=== PATIENT | male | born 2000 | race American Indian/Alaskan Native ===

== ENCOUNTER 2019-07-31 21:46 | Emergency (ER) | payer SELFPAY ==
[2019-07-31 22:00] VITALS: BP 149/91
== END 2019-08-01 01:00 | disposition left against medical advice (07) ==
LOC: ED 21:46
DX: M79.661 Pain in right lower leg (principal); Z53.21 Procedure and treatment not carried out due to patient leaving prior to being seen by health care provider

== ENCOUNTER 2019-10-18 02:09 | Emergency (ER) | payer OTHER ==
[2019-10-18 02:18] VITALS: BP 144/90
[2019-10-18] MEDS ORDERED: AZITHROMYCIN 250 MG TAB PO ONE (05:25)
[2019-10-18] MEDS ORDERED: LIDOCAINE-MPF (1%) 10 MG/1 ML VIAL 5 ML INFILTRATI ONE (05:25)
--- NOTE | 2019-10-18 05:27 | Emergency Department Report ---
ED Male HPI - General Chief complaint: Urogenital-Male Stated complaint: GENITAL AREA SWELLING Time Seen by Provider: 10/18/19 04:04 Source: patient Mode of arrival: Ambulatory Limitations: No Limitations - History of Present Illness Initial comments: This is a 18-year-old -[place] male who presents to the emergency room with penile discharge and swollen penis for 2 days. Patient admits to unprotected intercourse. Patient states his distal foreskin of penis is painful and swollen from large amount of discharge. Patient states that he can retract foreskin but very painful. He denies fever, chills, testicular swelling or pain, urinary frequency, urgency, dysuria, pelvic pain, or back pain. MD Complaint: penile discharge, other (Penile swelling) Onset/Timin -: days(s) Location: penis Radiation: none Severity: moderate Severity scale (0 -10): 6 Quality: aching, burning Consistency: constant Improves with: none Worsens with: palpation, movement discharge, swelling. denies: mass, rash, urinary retention, blood in urine, dysuria, fever, nausea/vomiting, incontinence - Related Data Sexually active: Yes Previous Rx's Medication Instructions Recorded Last Taken Type DOXYCYCLINE Hyclate [Vibramycin 100 mg PO Q12HR #14 capsule 10/18/19 Unknown Rx CAP] Nystatin Cream [Mycostatin Cream] 1 applic TP TID #1 tube 10/18/19 Unknown Rx Valacyclovir HCl [Valacyclovir] 1,000 mg PO BID #20 tablet 10/18/19 Unknown Rx Allergies Allergy/AdvReac Type Severity Reaction Status Date / Time No Known Allergies Allergy Verified 10/18/19 02:10 ED Review of Systems ROS: Stated complaint: GENITAL AREA SWELLING Other details as noted in HPI Constitutional: denies: chills, fever Respiratory: denies: cough, shortness of breath, wheezing Cardiovascular: denies: chest pain, palpitations Gastrointestinal: denies: abdominal pain, nausea, diarrhea Genitourinary: dysuria, discharge, other (Swollen penis). denies: urgency, frequency, hematuria, testicular pain, testicular mass Musculoskeletal: denies: back pain, joint swelling, arthralgia Skin: denies: rash, lesions Neurological: denies: headache, weakness, paresthesias Psychiatric: denies: anxiety, depression ED Past Medical Hx - Past Medical History Previous Medical History?: No - Surgical History Past Surgical History?: No - Social History Smoking Status: Current Every Day Smoker Substance Use Type: None - Medications Home Medications: Home Medications Medication Instructions Recorded Confirmed Last Taken Type DOXYCYCLINE Hyclate [Vibramycin 100 mg PO Q12HR #14 capsule 10/18/19 Unknown Rx CAP] Nystatin Cream [Mycostatin Cream] 1 applic TP TID #1 tube 10/18/19 Unknown Rx Valacyclovir HCl [Valacyclovir] 1,000 mg PO BID #20 tablet 10/18/19 Unknown Rx ED Physical Exam - General Limitations: No Limitations General appearance: alert, in no apparent distress - Respiratory Respiratory exam: Present: normal lung sounds bilaterally. Absent: respiratory distress - Cardiovascular Cardiovascular Exam: Present: regular rate, normal rhythm. Absent: systolic murmur, diastolic murmur, rubs, gallop - GI/Abdominal GI/Abdominal exam: Present: soft, normal bowel sounds. Absent: distended, tenderness, guarding, rebound, rigid, organomegaly, pulsatile mass, hernia - exam: Present: urethral discharge (Grayish-yellow malodorous). Absent: testicular tenderness, scrotal swelling, vertical testicular lie, circumcision (Uncircumcised) External exam: Present: swelling (Swelling and painful glands penis, discharge between foreskin), lesions (Multiple vesicular lesions to glans penis, TTP). Absent: erythema, lacerations, ecchymosis, bleeding - Extremities Exam Extremities exam: Present: normal inspection - Back Exam Back exam: Absent: CVA tenderness (R), CVA tenderness (L) - Neurological Exam Neurological exam: Present: alert, oriented X3, normal gait - Psychiatric Psychiatric exam: Present: normal affect, normal mood - Skin Skin exam: Present: warm, dry, intact, normal color. Absent: rash ED Course Vital Signs 10/18/19 02:16 Temperature 99.1 F Pulse Rate 84 Respiratory 15 Rate Blood Pressure 144/90 O2 Sat by Pulse 96 Oximetry ED Medical Decision Making - Medical Decision Making This is a 18-year-old male that presents to the emergency room with penile discharge, swollen and painful glans penis for 2 days. Vitals are stable and patient in no acute distress. No significant medical history. There were painful lesions to the glans penis consistent with herpes simplex. Foreskin soaked in soapy water for 15 minutes. Foreskin retractable with grayish discharge. Exam and history not consistent with deep space infection, prostatitis, or acute abdomen. Patient empirically treated with Rocephin 250 mg IM and azithromycin 1 g p.o. Instructed to follow-up with health department or primary care doctor for full STD screening. Counseled regarding safe sex practices and partner notification. Will treat for urethritis, genital herpes, and balanitis. Start antibiotics, antivirals and topical antifungal cream. Given instructions on importance of retracting foreskin and cleaning with soap and water daily. Discussed return precautions and follow-up with primary care. Patient discharged home stable with return precautions. Critical care attestation.: If time is entered above; I have spent that time in minutes in the direct care of this critically ill patient, excluding procedure time. 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 Follow up with Primary Care Provider or health department. Prescriptions: Nystatin Cream [Mycostatin Cream] 1 applic TP TID #1 tube Valacyclovir HCl [Valacyclovir] 1,000 mg PO BID #20 tablet DOXYCYCLINE Hyclate [Vibramycin CAP] 100 mg PO Q12HR #14 capsule Referrals: [facility] [Outside] - 3-5 Days [facility] [Outside] - 3-5 Days [facility] [Outside] - 3-5 Days [facility] [Outside] - 3-5 Days Time of Disposition: 06:42
== END 2019-10-18 07:01 | disposition home or self-care (01) ==
LOC: ED 02:09
DX: A60.01 Herpesviral infection of penis (principal); F17.200 Nicotine dependence, unspecified, uncomplicated
CPT/HCPCS: 96372; 99282; J0696